=== PATIENT | male | born 1940 | race Caucasian/White ===

== ENCOUNTER → 2016-07-17 | Outpatient (CLI) | payer MEDICARE, OTHER | END | disposition home or self-care (01) | LOC: GMAB 10:50 | PROVIDERS: ATTEND Family Medicine | DX: Z12.5 Encounter for screening for malignant neoplasm of prostate (principal); Z79.899 Other long term (current) drug therapy | CPT/HCPCS: 84443; G0103 ==

== ENCOUNTER 2017-02-21 09:13 | Emergency (ER) | payer MEDICARE, OTHER ==
--- NOTE | 2017-02-21 09:25 | ED.PDOC ---
History of Present Illness - General Chief Complaint: General Stated Complaint: skin rash Time Seen by Provider: 02/21/17 09:24 Source: patient Exam Limitations: no limitations - History of Present Illness Initial Comments: Josse Wood 76 y/o male stated that he developed itchy skin rash 3 days ago.Denies travel outside [place],no ill contact,no new soaps or laundry detergents.Had been taking Bactrim Ds daily for his prostate problem for 18 days .Took Benadryl for itching. Timing/Duration: constant, other - 3 days ago Location: torso, extremities Improving Factors: nothing Worsening Factors: nothing Associated Symptoms: rash Allergies/Adverse Reactions: Allergies Iodine Allergy (Severe, Verified 02/21/17 09:32) Anaphylaxis Codeine Adverse Reaction (Mild, Verified 02/21/17 09:32) Nausea Meperidine [From Demerol HCl] Adverse Reaction (Mild, Verified 02/21/17 09:32) Nausea Home Medications: Ambulatory Orders Sulfa/Trimeth 800/160 (Ds) Tab [Bactrim DS Tab] 1 ea PO DAILY 02/21/17 predniSONE 10 mg PO BID #14 tab 02/21/17 Review of Systems - Review of Systems Constitutional: States: no symptoms reported EENTM: States: no symptoms reported Respiratory: States: no symptoms reported Cardiology: States: no symptoms reported Gastrointestinal/Abdominal: States: no symptoms reported Genitourinary: States: see HPI Past Medical History (General) - Patient Medical History Hx Congestive Heart Failure: No Hx Diabetes: No Hx Other PMH: Yes - bph-elevated psa Surgical History: cholecystectomy - Social History Hx Tobacco Use: No Hx Chewing Tobacco Use: No Hx Alcohol Use: No - Activities of Daily Living Patient Lives Alone: No Grooming Ability: Independent Eating (Feeding) Ability: Independent - Toileting Ability: Independent Family Medical History - Family History Brother Hx Family Cancer: Yes - prostate cancer - brothers Physical Exam - Physical Exam General Appearance: Alert, No apparent distress Eyes, Ears, Nose, Throat Exam: PERRL/EOMI, normal ENT inspection, pharynx normal Neck: full range of motion, supple Cardiovascular/Chest: normal peripheral pulses, regular rate, rhythm, no murmur Respiratory: chest non-tender, lungs clear, normal breath sounds Gastrointestinal/Abdominal: non tender, soft, no organomegaly Back Exam: normal inspection Extremity: non-tender, normal inspection, no pedal edema, no calf tenderness Neurologic: alert, oriented x 3 Skin Exam: warm/dry, normal color Skin Problem Location: upper extremities, torso, lower extremities Skin Character: erythema, macules, urticarial Lymphatic: no adenopathy Progress - Progress Progress: 02/21/17 09:40 Vital Signs 02/21/17 09:27 Temperature 97.7 F Pulse Rate [ 74 pulse ox] Respiratory 20 Rate Blood Pressure 111/74 [Left Arm] O2 Sat by Pulse 97 Oximetry Departure - Departure Clinical Impression: Skin rash Time of Disposition: 09:41 Disposition: Discharge to Home or Self Care Instructions: DI for Rash Referrals: Beni Whitney MD [Primary Care Provider] - 1-2 Weeks Prescriptions: predniSONE 10 mg PO BID #14 tab Home Medications: Ambulatory Orders Sulfa/Trimeth 800/160 (Ds) Tab [Bactrim DS Tab] 1 ea PO DAILY 02/21/17 predniSONE 10 mg PO BID #14 tab 02/21/17 Additional Instructions: STOP TAKING YOUR BACTRIM-DS ;Call up Dr. Johnson Urologist in am for substitute antibiotics .No Bathing with steamy hot water
[2017-02-21 09:32] VITALS: BP 111/74; TEMP 97.7; O2SAT 97
[2017-02-21] MEDS ORDERED: DEXAMETHASONE INJ 4 MG/ML VIAL IM ONE (09:42)
== END 2017-02-21 10:00 | disposition home or self-care (01) ==
LOC: ER 09:13
DX: R21 Rash and other nonspecific skin eruption (principal); N40.0 Benign prostatic hyperplasia without lower urinary tract symptoms; Z88.6 Allergy status to analgesic agent; Z88.8 Allergy status to other drugs, medicaments and biological substances; Z80.42 Family history of malignant neoplasm of prostate

== ENCOUNTER → 2020-02-05 | Outpatient (CLI) | payer MEDICARE, OTHER ==
--- NOTE | 2020-02-05 17:14 | MRI ---
EXAM DESCRIPTION: Brain w/wo Contrast: Magnetic Resonance Imaging. CLINICAL HISTORY: 79 years Male VERTIGO COMPARISON: None. TECHNIQUE: Multiplanar, high-field MRI, multiple conventional sequences, without and with Dotarem gadolinium IV, 1 mL per 5 kg body weight, contrast. No adverse reactions. Multiple axial diffusion sequences. FINDINGS: Small bilateral confluent regions of hyperintense FLAIR and T2-weighted signal in the Periventricular white matter abutting the frontal horns and occipital horns. Bilateral multifocal hyperintense lesions in the subcortical white matter frontal parietal and occipital lobes with relative sparing of the temporal lobes. Most of these lesions above the levels of the ventricles bilaterally. Normal contrast enhancement. No hemorrhage, no cerebral edema, no mass-effect. Normal signal in the bilateral basal ganglia. Normal contrast enhancement. Normal signal in the brainstem and cerebellar hemispheres. Normal contrast enhancement. Concordance of the diffusion and non-diffusion sequences with no evidence of acute or subacute infarction. Cortical sulci, ventricles, and other CSF spaces, and the subdural spaces are normally configured for patients age. No effacement or displacement. No midline shift. No extra-axial hemorrhage. Normal contrast enhancement. Normal flow signal void in the major vessels of the [place], and the venous sinuses. IACs are symmetric bilaterally. Normal signal and normal contrast enhancement in the bilateral mastoid air cells. No mass effect in the bilateral Cerebellopontine angles. Normal contrast enhancement. Normal signal in the bilateral vestibulocochlear nerves with normal contrast enhancement. Normal contrast enhancement in the temporal bone, including the semicircular canals with no mass effect. Pituitary gland occupies most of the sella. Normal contrast enhancement. Base of the cerebellar tonsils is at the level of the foramen magnum. Minimal mucoperiosteal thickening in the paranasal sinuses. Mid septum deviates to the right with greater anterior septal deviation to the left. The bony calvarium is intact. IMPRESSION: 1. Scattered white matter disease mostly in the subcortical white matter above the ventricles and in the periventricular white matter abutting the frontal and occipital horns. No hemorrhage, no mass effect, no abnormal contrast enhancement. 2. Normal noncontrast MRI diffusion study with no evidence of significant ischemia or acute or subacute infarction. 3. No mass effect or abnormal contrast enhancement in the cerebellopontine angles, vestibulocochlear nerves, or semicircular canals. No abnormal fluid collection. 4. Minimal chronic paranasal sinusitis with septal deviation. Electronically signed by: Hermann John MD 02/05/2020 5:12 PM CDT
== END ==
LOC: MRI 08:18
PROVIDERS: ATTEND Family Medicine
DX: Z01.812 Encounter for preprocedural laboratory examination (principal); J32.9 Chronic sinusitis, unspecified; J34.2 Deviated nasal septum; R90.82 White matter disease, unspecified

== ENCOUNTER → 2020-06-18 | Outpatient (CLI) | payer MEDICARE, OTHER | LOC: GMAL 10:43 | PROVIDERS: ATTEND Family Medicine | DX: R53.83 Other fatigue (principal); Z12.5 Encounter for screening for malignant neoplasm of prostate; Z79.899 Other long term (current) drug therapy | CPT/HCPCS: 84439; 84443; 84481; G0103 ==